=== PATIENT | male | born 1990 | race Caucasian/White ===

== ENCOUNTER 2020-10-25 20:42 | Emergency (ER) | payer OTHER ==
[2020-10-25 21:10] VITALS: BMI 26.9
[2020-10-25] MEDS ORDERED: SODIUM CHLORIDE 0.9% 500 ML INFUS.BAG IV ONE (21:26)
[2020-10-25 22:10] LABS: BASO % 0.8 % (0-2.0); EOS % 2.3 % (0-4.5); HEMATOCRIT 43.2 % (35.4-49); HEMOGLOBIN 14.7 GM/dL (11.7-16.9); LYMPH % 12.1 % (8-40); MCH 30.1 pg (25.7-33.7); MCHC 34.1 g/dl (32.0-35.9); MEAN CELL VOLUME 88.3 fl (80-96); MEAN PLT VOLUME 8.5 fl (7.5-11.1); MONO % 8.6 % (3.8-10.2); NEUT % 76.2 % (42.8-82.8); PLATELET COUNT 213 10^3/uL (134-434); RBC 4.89 M/mm3 (4.00-5.60); RDW 13.1 % (11.9-15.9); WHITE BLOOD COUNT 7.8 K/mm3 (4.0-10.0)
[2020-10-25] MEDS ORDERED: ACETAMINOPHEN 500 MG TABLET (FP) PO ONE (22:15)
[2020-10-25 22:17] VITALS: TEMP 98.4
[2020-10-25 22:40] LABS: BLOOD UREA NITROGEN 18.3 mg/dL (7-18); CALCIUM 8.4 mg/dL (8.5-10.1)
[2020-10-25 22:41] LABS: ALBUMIN 4.4 g/dl (3.4-5.0)
[2020-10-25 22:44] LABS: CREATININE 1.2 mg/dL (0.55-1.3)
[2020-10-25 23:09] LABS: BILIRUBIN,TOTAL 0.2 mg/dL (0.2-1); TOT PROT 7.6 g/dl (6.4-8.2)
[2020-10-25] MEDS ORDERED: NALOXONE HCL 0.4 MG/ML VIAL IVPUSH ONE (23:45)
[2020-10-25] MEDS ORDERED: NALOXONE HCL 0.4 MG/ML VIAL ONE (23:58)
[2020-10-26 04:20] VITALS: BP 144/93; PULSE 86
== END 2020-10-26 04:22 ==
LOC: JER 20:42
PROC: 3E033NZ Introduction of Analgesics, Hypnotics, Sedatives into Peripheral Vein, Percutaneous Approach (ICD-10-PCS; principal; 2020-10-25)
DX: T40.2X1A Poisoning by other opioids, accidental (unintentional), initial encounter (principal)
CPT/HCPCS: 36415; 80053; 85025; 93005; 93010; 99283-25